=== PATIENT | male | born 1970 | race Caucasian/White ===

== ENCOUNTER → 2021-04-16 | Outpatient (CLI) | payer BC | LOC: HEART 5 13:17 | DX: I48.91 Unspecified atrial fibrillation (principal); I10 Essential (primary) hypertension | CPT/HCPCS: 93306 ==

== ENCOUNTER → 2021-07-05 | Outpatient (CLI) | payer BC ==
[~2021-07-05] MED LIST: AMIODARONE HCL200 MG PO; AMIODARONE HCL400 MG PO; ELIQUIS5 MG PO; LOPRESSOR 25 MG25 MG PO
[2021-07-05 08:42] LABS: HEMOGLOBIN 14.6 gm/dl (14.0-17.5); RED BLOOD COUNT 4.46 M/UL (4.20-5.50); WHITE BLOOD COUNT 6.9 K/UL (4.5-11.0)
[2021-07-05 09:02] LABS: BUN/CREATININE RATIO 12 (0-10)
== END ==
LOC: CATH 07:30
PROVIDERS: Internal Medicine Cardiovascular Disease
DX: I48.19 Other persistent atrial fibrillation (principal); Z79.01 Long term (current) use of anticoagulants; I10 Essential (primary) hypertension; Z20.822 Contact with and (suspected) exposure to COVID-19
CPT/HCPCS: 80048; 85027; 92960; 93005; J1200; J1742; J2250; J2310; J3010